=== PATIENT | female | born 1950 | race African-American/Black ===

== ENCOUNTER 2017-11-28 17:06 | Inpatient (IN) | payer MEDICARE, MEDICAID ==
[~2017-11-28] VITALS: Ht 167.6 cm; Wt 88.0 kg
[2017-11-28] MEDS ORDERED: MAGN400O6 PO (17:40)
[2017-11-28] MEDS ORDERED: ASPI81TA31 PO (17:40)
[2017-11-28] MEDS ORDERED: LEVO125T8 PO (17:40)
[2017-11-28] MEDS ORDERED: AMLO10TA2 PO (17:40)
[2017-11-28] MEDS ORDERED: TIMO5SOL11 OP (17:40)
[2017-11-28] MEDS ORDERED: ALBU6.7H IH (17:40)
[2017-11-28] MEDS ORDERED: ERGO500014 PO (17:40)
[2017-11-28] MEDS ORDERED: DIVA500T4 PO (17:40)
[2017-11-28] MEDS ORDERED: ATOR80TA PO (17:40)
[2017-11-28] MEDS ORDERED: DIPH50CA4 PO (17:40)
[2017-11-28] MEDS ORDERED: ACET-73 PO (17:40)
[2017-11-28] MEDS ORDERED: PHEN100C4 PO (17:40)
[2017-11-28] MEDS ORDERED: LATA2.5D7 OP (17:40)
[2017-11-28] MEDS ORDERED: CLON1TAB4 PO (17:40)
--- NOTE | 2017-11-28 18:12 | NUR ---
Dr. Corey at bedside for MSE.
[2017-11-28] MEDS ORDERED: IV NORMAL SALINE 1000 ML BAG IV ONE (18:15)
[2017-11-28 18:42] LABS: BASOPHILS # (AUTO) 0.1 K/uL (0.0-8.0); BASOPHILS % (AUTO) 1.2 % (0.0-2.0); EOSINOPHILS # (AUTO) 0.1 K/uL (0.0-0.7); HEMATOCRIT 37.1 % (31.2-41.9); LYMPHOCYTES # (AUTO) 4.3 K/uL (20.0-40.0); LYMPHOCYTES % (AUTO) 35.3 % (20.5-51.5); MEAN CORPUSCULAR HEMOGLOBIN 30.1 uug (24.7-32.8); MEAN CORPUSCULAR HGB CONC 32 g/dL (32.3-35.6); MEAN CORPUSCULAR VOLUME 93.3 fL (75.5-95.3); MONOCYTES # (AUTO) 1.5 K/uL (2.0-10.0); MONOCYTES % (AUTO) 12.2 % (0.0-11.0); NEUTROPHILS # (AUTO) 6.1 K/uL (1.8-8.9); NEUTROPHILS % (AUTO) 50.3 % (38.5-71.5); RED BLOOD CELL COUNT(AUTO) 3.98 MIL/uL (3.63-4.92); WHITE BLOOD COUNT (AUTO) 12.1 K/uL (3.8-11.8)
[2017-11-28 18:45] LABS: CREATININE 0.8 mg/dL (0.6-1.3); POTASSIUM 4.4 mmol/L (3.5-5.1)
[2017-11-28] MEDS ORDERED: OLANZAPINE 5 MG TABLET PO ONE (18:45)
[2017-11-28] MEDS ORDERED: OLANZAPINE 5 MG TABLET ONE (18:55)
[2017-11-28] MEDS ORDERED: IOHEXOL 300MG/ML 100 ML INFUS..BTL ONE (19:21)
[2017-11-28] MEDS ORDERED: NORMAL SALINE FLUSH 10 ML DISP.SYRIN ONE (19:21)
[2017-11-28] MEDS ORDERED: IV NORMAL SALINE 250 ML IV ONE (19:21)
[2017-11-28 19:57] LABS: PLATELET COUNT (AUTO) 295 K/uL (179-408)
--- NOTE | 2017-11-28 20:30 | NUR ---
Medically cleared by ERMD
--- NOTE | 2017-11-28 20:46 | NUR ---
Pt. admitted to [facility], under care of Dr. Wolff Belongs List completed
[2017-11-28 21:00] VITALS: BP 124/88
[2017-11-28] MEDS ORDERED: MAG HYDROX/AL HYDROX/SIMETH 30 ML LIQUID UDC PO PRN (21:00)
[2017-11-28] MEDS ORDERED: ACETAMINOPHEN 325 MG TABLET PO PRN (21:00)
[2017-11-28] MEDS ORDERED: MAGNESIUM HYDROXIDE 30 ML LIQUID UDC PO PRN (21:00)
--- NOTE | 2017-11-28 22:00 | NUR ---
received to care, at 2044, on a 72 hour hold, for danger to self, from the emergency room, a transfer from [facility]. according to the chart, she lives with her daughter who stated that she was voicing suicidal ideations to her, stating that she was scared after "seeing ugly people who want to take her life" ppppppppt denies any ideations at this time, stating that "it comes and goes", but she verbally contracted for safety, while on the unit. according to the chart, her daughter reported that patient has a history of multiple suicide attempts in the past, including attempting to stab herself in the abdomen 3 years ago, and an overdose on another occasion. upon arrival, she was cooperative, but suspicious, guarded, and easilly agitated during interview. as of 2199, she is awake, in bed. no distress noted.
[2017-11-28] MEDS ORDERED: diphenhydrAMINE 50 MG CAPSULE PO PRN (22:15)
[2017-11-28] MEDS ORDERED: ALBUTEROL SULFATE 2.5 MG/3 ML NEBU NEB PRN (22:15)
[2017-11-28] MEDS: TEMAZEPAM 7.5 MG CAPSULE PO PRN (22:34)
--- NOTE | 2017-11-28 22:34 | NUR ---
remains awake. PRN restoril was given at this time.
--- NOTE | 2017-11-28 23:00 | NUR ---
appears to be asleep. no distress noted.
[2017-11-29 01:46] LABS: *BILIRUBIN,URIN NEGATIVE (NEGATIVE); *BLOOD, URINE NEGATIVE (NEGATIVE); *CLARITY,URINE CLEAR (CLEAR); *COLOR,URINE YELLOW (YELLOW); *KETONES,URINE NEGATIVE (NEGATIVE); *PROTEIN,URINE NEGATIVE (NEGATIVE); *UROBILINOGEN,URINE 0.2 E.U./dl (NORMAL); LEUKOCYTE ESTERASE ,URINE NEGATIVE (NEGATIVE); NITRITE, URINE NEGATIVE (NEGATIVE); PH,URINE 7.5 (5.0-8.0); UGLUCOSE NEGATIVE (NEGATIVE)
[2017-11-29 01:50] LABS: BACTERIA,URINE NONE SEEN /HPF (NONE SEEN); RBC,URINE NONE SEEN /HPF (0-3); SQUAMOUS EPITHELIAL CELL,UR NONE SEEN /HPF (NONE SEEN); WBC,URINE 0-3 /HPF (0-3)
[2017-11-29 02:14] LABS: *AMPHETAMINE, URINE NEGATIVE (NEGATIVE); *BARBITURATE, URINE NEGATIVE (NEGATIVE); *CANNABINOID, URINE NEGATIVE (NEGATIVE); *COCCAINE, URINE NEGATIVE (NEGATIVE); *OPIATE, URINE NEGATIVE (NEGATIVE); *PHENCYCLIDINE SCREEN,URINE NEGATIVE (NEGATIVE)
[2017-11-29 07:30] VITALS: BP 120/80
[2017-11-29] MEDS: LEVOTHYROXINE SODIUM 125 MCG TABLET PO SCH (08:54)
[2017-11-29] MEDS: ASPIRIN 81 MG TAB.CHEW PO SCH (08:54)
[2017-11-29] MEDS: AMLODIPINE 10 MG TABLET PO SCH (08:54)
[2017-11-29] MEDS: LORAZEPAM 0.5 MG TABLET PO PRN (13:46)
[2017-11-29 15:16] VITALS: BP 129/82
[2017-11-29] MEDS: NICOTINE 14 MG/24HR PATCH TD SCH (17:07)
[2017-11-29] MEDS: PHENYTOIN SODIUM EXTENDED 100 MG CAPSULE.SA PO SCH (20:28)
[2017-11-29] MEDS: TIMOLOL MALEATE XE 0.5% OPHT 5 ML BOTTLE OP SCH (20:34)
[2017-11-29] MEDS: LATANOPROST OPHT DROP 2.5 ML BOTTLE OP SCH (20:34)
[2017-11-29] MEDS ORDERED: QUETIAPINE FUMARATE 25 MG TABLET PO SCH (21:00)
[2017-11-29] MEDS ORDERED: ATORVASTATIN 40 MG TABLET PO SCH (21:00)
[2017-11-29 21:20] VITALS: BP 142/83
--- NOTE | 2017-11-29 22:00 | NUR ---
received to care, up in wheel chair, isolative, but pleasant upon approach. compliant with medications and staff direction. as of 2199, she remains awake, in bed. no distress noted. will continue to monitor closely.
[2017-11-29] MEDS: TEMAZEPAM 7.5 MG CAPSULE PO PRN (22:20)
--- NOTE | 2017-11-29 22:20 | NUR ---
remains awake. PRN restoril was given. will continue to monitor closely.
--- NOTE | 2017-11-29 23:00 | NUR ---
appears to be asleep. no distress noted.
[2017-11-30] MEDS: NICOTINE 14 MG/24HR PATCH TD SCH (08:08)
[2017-11-30] MEDS: AMLODIPINE 10 MG TABLET PO SCH (08:08)
[2017-11-30] MEDS: LEVOTHYROXINE SODIUM 125 MCG TABLET PO SCH (08:08)
[2017-11-30] MEDS: ASPIRIN 81 MG TAB.CHEW PO SCH (08:08)
[2017-11-30 08:16] LABS: BASOPHILS % (AUTO) 0.2 % (0.0-2.0); EOSINOPHILS # (AUTO) 0.1 K/uL (0.0-0.7); EOSINOPHILS % (AUTO) 1.3 % (0.0-7.0); HEMATOCRIT 35.9 % (31.2-41.9); HEMOGLOBIN 11.8 g/dL (10.9-14.3); LYMPHOCYTES # (AUTO) 3.1 K/uL (20.0-40.0); LYMPHOCYTES % (AUTO) 31.8 % (20.5-51.5); MEAN CORPUSCULAR HEMOGLOBIN 30.7 uug (24.7-32.8); MEAN CORPUSCULAR HGB CONC 33 g/dL (32.3-35.6); MEAN CORPUSCULAR VOLUME 93.1 fL (75.5-95.3); MONOCYTES # (AUTO) 1.2 K/uL (2.0-10.0); MONOCYTES % (AUTO) 11.8 % (0.0-11.0); NEUTROPHILS # (AUTO) 5.4 K/uL (1.8-8.9); NEUTROPHILS % (AUTO) 54.9 % (38.5-71.5); PLATELET COUNT (AUTO) 252 K/uL (179-408); RED BLOOD CELL COUNT(AUTO) 3.85 MIL/uL (3.63-4.92); WHITE BLOOD COUNT (AUTO) 9.8 K/uL (3.8-11.8)
[2017-11-30 08:22] VITALS: BP 134/88
[2017-11-30 08:33] LABS: THYROID STIMULATING HORMONE 0.471 mIU/mL (0.358-3.740)
[2017-11-30 08:37] LABS: BILIRUBIN,TOTAL 0.3 mg/dL (0.2-1.0); CREATININE 0.7 mg/dL (0.6-1.3); MAGNESIUM 1.9 mg/dL (1.8-2.4); PHOSPHOROUS 3.8 mg/dL (2.5-4.9); POTASSIUM 3.6 mmol/L (3.5-5.1); TOTAL PROTEIN, SERUM 6.3 g/dL (6.4-8.2)
[2017-11-30] MEDS ORDERED: DIVALPROEX ER 500 MG TAB.SR.24H PO SCH (09:00)
--- NOTE | 2017-11-30 10:31 | NUR ---
Firearms Report: Dog Track Kennel Manager completed and submitted [facility] Firearms Report on 11/30/17.
[2017-11-30 15:12] VITALS: BP 126/77
[2017-11-30] MEDS: LORAZEPAM 0.5 MG TABLET PO PRN ×2 (16:03→21:48)
[2017-11-30 20:20] VITALS: BP 137/97
[2017-11-30] MEDS: LATANOPROST OPHT DROP 2.5 ML BOTTLE OP SCH (20:23)
[2017-11-30] MEDS: QUETIAPINE FUMARATE 25 MG TABLET PO SCH (20:23)
[2017-11-30] MEDS: TIMOLOL MALEATE XE 0.5% OPHT 5 ML BOTTLE OP SCH (20:23)
[2017-11-30] MEDS: ATORVASTATIN 20 MG TABLET PO SCH (20:24)
[2017-11-30] MEDS: DIVALPROEX ER 500 MG TAB.SR.24H PO SCH (20:25)
[2017-11-30] MEDS: PHENYTOIN SODIUM EXTENDED 100 MG CAPSULE.SA PO SCH (20:25)
[2017-11-30] MEDS: TEMAZEPAM 7.5 MG CAPSULE PO PRN (21:57)
[2017-12-01 07:30] VITALS: BP 125/75
[2017-12-01] MEDS: LEVOTHYROXINE SODIUM 125 MCG TABLET PO SCH (08:38)
[2017-12-01] MEDS: DIVALPROEX ER 500 MG TAB.SR.24H PO SCH ×2 (08:39→21:23)
[2017-12-01] MEDS: ASPIRIN 81 MG TAB.CHEW PO SCH (08:40)
[2017-12-01] MEDS: AMLODIPINE 10 MG TABLET PO SCH (08:40)
[2017-12-01] MEDS: NICOTINE 14 MG/24HR PATCH TD SCH (09:31)
[2017-12-01] MEDS: LORAZEPAM 0.5 MG TABLET PO PRN ×3 (12:19→23:22)
[2017-12-01 15:20] VITALS: BP 126/89
[2017-12-01] MEDS: GUAIFENESIN/CODEINE 5 ML LIQUID UDC PO PRN ×2 (15:58→23:57)
[2017-12-01 20:00] VITALS: BP 139/90
[2017-12-01] MEDS: ATORVASTATIN 20 MG TABLET PO SCH (21:23)
[2017-12-01] MEDS: PHENYTOIN SODIUM EXTENDED 100 MG CAPSULE.SA PO SCH (21:23)
[2017-12-01] MEDS: QUETIAPINE FUMARATE 25 MG TABLET PO SCH (21:23)
[2017-12-01] MEDS: TIMOLOL MALEATE XE 0.5% OPHT 5 ML BOTTLE OP SCH (21:24)
[2017-12-01] MEDS: LATANOPROST OPHT DROP 2.5 ML BOTTLE OP SCH (21:24)
[2017-12-02 07:30] VITALS: BP 102/81
[2017-12-02 08:01] LABS: BILIRUBIN,TOTAL 0.5 mg/dL (0.2-1.0); CREATININE 0.7 mg/dL (0.6-1.3); POTASSIUM 4.3 mmol/L (3.5-5.1); TOTAL PROTEIN, SERUM 6.2 g/dL (6.4-8.2)
[2017-12-02 08:02] LABS: BASOPHILS % (AUTO) 0.4 % (0.0-2.0); EOSINOPHILS # (AUTO) 0.2 K/uL (0.0-0.7); EOSINOPHILS % (AUTO) 1.8 % (0.0-7.0); HEMATOCRIT 36.7 % (31.2-41.9); HEMOGLOBIN 11.9 g/dL (10.9-14.3); LYMPHOCYTES % (AUTO) 29.5 % (20.5-51.5); MEAN CORPUSCULAR HGB CONC 32 g/dL (32.3-35.6); MEAN CORPUSCULAR VOLUME 92.9 fL (75.5-95.3); MONOCYTES # (AUTO) 1.2 K/uL (2.0-10.0); MONOCYTES % (AUTO) 11.5 % (0.0-11.0); NEUTROPHILS # (AUTO) 5.9 K/uL (1.8-8.9); NEUTROPHILS % (AUTO) 56.8 % (38.5-71.5); PLATELET COUNT (AUTO) 218 K/uL (179-408); RED BLOOD CELL COUNT(AUTO) 3.96 MIL/uL (3.63-4.92); WHITE BLOOD COUNT (AUTO) 10.3 K/uL (3.8-11.8)
[2017-12-02] MEDS: NICOTINE 14 MG/24HR PATCH TD SCH (08:52)
[2017-12-02] MEDS: DIVALPROEX ER 500 MG TAB.SR.24H PO SCH ×2 (08:53→20:35)
[2017-12-02] MEDS: ASPIRIN 81 MG TAB.CHEW PO SCH (08:53)
[2017-12-02] MEDS: AMLODIPINE 10 MG TABLET PO SCH ×2 (08:53→15:59)
[2017-12-02] MEDS: LEVOTHYROXINE SODIUM 125 MCG TABLET PO SCH (08:53)
[2017-12-02] MEDS: LORAZEPAM 0.5 MG TABLET PO PRN (14:07)
[2017-12-02 16:26] VITALS: BP 152/107
[2017-12-02 20:28] VITALS: BP 149/96
[2017-12-02] MEDS: TIMOLOL MALEATE XE 0.5% OPHT 5 ML BOTTLE OP SCH (20:35)
[2017-12-02] MEDS: PHENYTOIN SODIUM EXTENDED 100 MG CAPSULE.SA PO SCH (20:35)
[2017-12-02] MEDS: LATANOPROST OPHT DROP 2.5 ML BOTTLE OP SCH (20:35)
[2017-12-02] MEDS: QUETIAPINE FUMARATE 25 MG TABLET PO SCH (20:36)
[2017-12-02] MEDS: ATORVASTATIN 20 MG TABLET PO SCH (20:36)
[2017-12-02] MEDS: GUAIFENESIN/CODEINE 5 ML LIQUID UDC PO PRN (21:25)
[2017-12-02] MEDS: TEMAZEPAM 7.5 MG CAPSULE PO PRN (21:26)
[2017-12-03] MEDS: LORAZEPAM 0.5 MG TABLET PO PRN ×2 (03:34→10:33)
[2017-12-03] MEDS: LEVOTHYROXINE SODIUM 125 MCG TABLET PO SCH (06:38)
[2017-12-03 07:30] VITALS: BP 111/68
[2017-12-03] MEDS ORDERED: LEVOTHYROXINE SODIUM 125 MCG TABLET PO SCH (08:00)
[2017-12-03] MEDS: NICOTINE 14 MG/24HR PATCH TD SCH (09:07)
[2017-12-03] MEDS: DIVALPROEX ER 500 MG TAB.SR.24H PO SCH (09:07)
[2017-12-03] MEDS: AMLODIPINE 10 MG TABLET PO SCH (09:07)
[2017-12-03] MEDS: ASPIRIN 81 MG TAB.CHEW PO SCH (09:08)
--- NOTE | 2017-12-03 13:04 | NUR ---
DC Note: Patient will be discharged to Home with her daughter [[address], [address] [facility] [address]] via private transportation at 3 pm. Spoke with patient's daughter, Amanda ([phone]) who is willing to provide transportation and is aware and agreeable with discharge plans. Patient is aware and agreeable with discharge plans. Patient will follow-up with her Primary Care Physician at [facility] [[address] [place], [place] [address]; [phone]] and her Psychiatrist Dr. Velarde through [facility] [[address] [place] [address]; [phone]]. Patient was provided with a brief substance abuse intervention and referred to [facility] , [facility] , and [facility] . Patient will continue going to her [place] meetings on Sundays from 8:30-10pm.
[2017-12-03 15:00] VITALS: BP 125/72
--- NOTE | 2017-12-03 15:30 | NUR ---
PT LEFT UNIT ACCOMPANIED BY DAUGHTER AND CLIENT PROJECT COORDINATOR TO PRIVATE VEHICLE. DENIES PAIN OR DISCOMFORT. ABLE TO MAKE NEEDS KNOWN. PT DENIES SUICIDAL AND HOMICIDAL IDEATIONS. CALM AND COOPERATIVE. DENIES HALLUCINATION, NO DELUSIONS PRESENT. V/S STABLE. LEFT WITH ALL NOTED BELONGINGS AND PAPERWORK. IN NO ACUTE DISTRESS.
[2017-12-04] MEDS ORDERED: LEVOTHYROXINE SODIUM 125 MCG TABLET PO SCH (07:00)
== END 2017-12-03 15:30 | disposition home or self-care (01) | DRG 885 ==
LOC: ER 17:06 → GPS 20:38
PROVIDERS: ADMIT Psychiatry & Neurology Psychosomatic Medicine; ATTEND Internal Medicine
DX: F25.0 Schizoaffective disorder, bipolar type (principal); F01.50 Vascular dementia, unspecified severity, without behavioral disturbance, psychotic disturbance, mood disturbance, and anxiety; E44.0 Moderate protein-calorie malnutrition; G62.9 Polyneuropathy, unspecified; I08.1 Rheumatic disorders of both mitral and tricuspid valves; J44.9 Chronic obstructive pulmonary disease, unspecified; E03.9 Hypothyroidism, unspecified; K80.20 Calculus of gallbladder without cholecystitis without obstruction; Z91.5 Personal history of self-harm; F17.210 Nicotine dependence, cigarettes, uncomplicated; E66.9 Obesity, unspecified; Z68.31 Body mass index [BMI] 31.0-31.9, adult; Z71.3 Dietary counseling and surveillance; F14.10 Cocaine abuse, uncomplicated; H54.61 Unqualified visual loss, right eye, normal vision left eye; I77.810 Thoracic aortic ectasia; F41.9 Anxiety disorder, unspecified; Z87.820 Personal history of traumatic brain injury; Z79.82 Long term (current) use of aspirin; Z79.899 Other long term (current) drug therapy; F43.10 Post-traumatic stress disorder, unspecified; X58.XXXS Exposure to other specified factors, sequela; Z91.410 Personal history of adult physical and sexual abuse; I10 Essential (primary) hypertension; G89.29 Other chronic pain
CPT/HCPCS: 36415; 70450; 71045; 71260; 80164; 80307; 83735; 84100; 84443; 85025; 87077; 87086; 93005; 93307; A4663; J3490; J3590; J7030; J7050; Q9967

== ENCOUNTER 2025-02-12 14:10 | Inpatient (IN) | payer MEDICARE, OTHER ==
[~2025-02-12] VITALS: Ht 162.6 cm; Wt 77.6 kg
[~2025-02-12 14:10] MED LIST: ACET-73 PO; ALBU6.7H9 IH; AMLO10TA59 PO; ASPI81TA31 PO; ATOR80TA PO; CLON1TAB12 PO; DIPH50CA4 PO; DIVA500T4 PO; ERGO500014 PO; LATA2.5D15 EACHEYE; LEVO125T8 PO; MAGN400O6 PO; PHEN100C4 PO; TIMO5SOL11 OP
[2025-02-12] MEDS: diphenhydrAMINE 50 MG/1 ML VIAL IM ONE (15:30)
[2025-02-12] MEDS: LORAZEPAM 2 MG/1 ML VIAL IM ONE (15:30)
[2025-02-12] MEDS: HALOPERIDOL LACTATE 5 MG/1 ML VIAL IM ONE (15:30)
[2025-02-12] MEDS ORDERED: LORAZEPAM 2 MG/1 ML VIAL ONE (15:32)
[2025-02-12] MEDS ORDERED: HALOPERIDOL LACTATE 5 MG/1 ML VIAL ONE (15:32)
[2025-02-12] MEDS ORDERED: diphenhydrAMINE 50 MG/1 ML VIAL ONE (15:32)
[2025-02-12 15:43] LABS: BASOPHILS % (AUTO) 0.3 % (0.0-2.0); EOSINOPHILS % (AUTO) 0.3 % (0.0-7.0); HEMATOCRIT 41.4 % (31.2-41.9); HEMOGLOBIN 12.9 g/dL (10.9-14.3); LYMPHOCYTES # (AUTO) 1.9 K/uL (0.8-4.8); LYMPHOCYTES % (AUTO) 15.5 % (20.5-51.5); MEAN CORPUSCULAR HEMOGLOBIN 28.3 uug (24.7-32.8); MEAN CORPUSCULAR HGB CONC 31 g/dL (32.3-35.6); MEAN CORPUSCULAR VOLUME 91.3 fL (75.5-95.3); MONOCYTES # (AUTO) 0.8 K/uL (0.1-1.30); MONOCYTES % (AUTO) 6.7 % (0.0-11.0); NEUTROPHILS # (AUTO) 9.4 K/uL (1.8-8.9); NEUTROPHILS % (AUTO) 77.2 % (38.5-71.5); PLATELET COUNT (AUTO) 256 K/uL (179-408); RED BLOOD CELL COUNT(AUTO) 4.54 MIL/uL (3.63-4.92); RED CELL DISTRIBUTION WIDTH 15.5 % (12.3-17.7); WHITE BLOOD COUNT (AUTO) 12.2 K/uL (3.8-11.8)
[2025-02-12 15:48] LABS: DIFFERENTIAL COMMENT 1
[2025-02-12 15:51] LABS: *BILIRUBIN,URIN NEGATIVE (NEGATIVE); *BLOOD, URINE 1+ (NEGATIVE); *CLARITY,URINE SLIGHTLY CLOUDY (CLEAR); *COLOR,URINE DARK YELLOW (YELLOW); *KETONES,URINE TRACE (NEGATIVE); *PROTEIN,URINE TRACE (NEGATIVE); LEUKOCYTE ESTERASE ,URINE 1+ (NEGATIVE); NITRITE, URINE NEGATIVE (NEGATIVE); UGLUCOSE NEGATIVE (NEGATIVE)
[2025-02-12 15:51] LABS: CALCIUM 8.7 mg/dL (8.5-10.1); CARBON DIOXIDE 25 mmol/L (21-32); CHLORIDE 108 mmol/L (98-107); CREATININE 0.7 mg/dL (0.6-1.3); GLUCOSE 124 mg/dL (74-106); LIPASE 71 U/L (16-77); POTASSIUM 3.4 mmol/L (3.5-5.1); SODIUM SERUM 146 mmol/L (136-145); UREA NITROGEN, BLOOD 13 mg/dL (7-18)
[2025-02-12 15:57] LABS: ALANINE AMINOTRANSFERASE 39 U/L (14-59); ALBUMIN 2.9 g/dL (3.4-5.0); ALKALINE PHOSPHATASE 89 U/L (50-136); ASPARTATE AMINOTRANSFERASE 52 U/L (15-37); BILIRUBIN,DIRECT 0.6 mg/dL (0.0-0.2); BILIRUBIN,TOTAL 0.7 mg/dL (0.2-1.0); TOTAL PROTEIN, SERUM 6.9 g/dL (6.4-8.2)
[2025-02-12 16:02] LABS: LACTIC ACID 2.8 mmol/L (0.4-2.0)
[2025-02-12 16:20] LABS: BACTERIA,URINE FEW /HPF (NONE SEEN); SQUAMOUS EPITHELIAL CELL,UR MANY /HPF (NONE SEEN)
[2025-02-12 16:21] LABS: URINE AMORPHOUS URATE MODERATE /HPF
[2025-02-12] MEDS: IV NORMAL SALINE 1000 ML BAG IV ONE (16:30)
[2025-02-12] MEDS: CEFTRIAXONE 1 G in IV DEXTROSE 5% 50 ML IV ONE (16:30)
[2025-02-12] MEDS: METRONIDAZOLE 500 MG/NS 100ML 100 ML IV ONE (16:30)
[2025-02-12] MEDS ORDERED: BACL10TA PO (16:43)
[2025-02-12] MEDS ORDERED: TEMA15CA PO (16:43)
[2025-02-12] MEDS ORDERED: FAMO10TA41 PO (16:43)
[2025-02-12] MEDS ORDERED: TRAM100C3 PO (16:43)
[2025-02-12] MEDS ORDERED: DOCU-160 PO (16:43)
[2025-02-12] MEDS ORDERED: FAMO40TA7 PO (16:43)
[2025-02-12] MEDS ORDERED: IPRA4AER IH (16:43)
[2025-02-12] MEDS ORDERED: ASCO500C18 PO (16:43)
[2025-02-12] MEDS ORDERED: METRONIDAZOLE 500 MG/NS 100ML 100 ML IV ONE (17:46)
[2025-02-12] MEDS ORDERED: CEFTRIAXONE /D5W 50ML IVPB **ER PYXIS IV ONE (17:46)
[2025-02-12] MEDS ORDERED: OLANZAPINE 10 MG VIAL IM PRN (21:00)
[2025-02-12] MEDS ORDERED: MAGNESIUM HYDROXIDE 30 ML LIQUID UDC PO PRN (21:00)
[2025-02-12] MEDS: LATANOPROST OPHT DROP 2.5 ML BOTTLE OP SCH (21:00)
[2025-02-12] MEDS: TIMOLOL MALEATE XE 0.5% OPHT 5 ML BOTTLE OP SCH (21:00)
[2025-02-12] MEDS ORDERED: ERGOCALCIFEROL 50,000 UNIT CAPSULE PO SCH (21:00)
[2025-02-12 22:16] VITALS: BP 145/88; TEMP 98.2; O2SAT 99
[2025-02-12] MEDS: ATORVASTATIN 40 MG TABLET PO SCH (22:46)
[2025-02-12] MEDS: TEMAZEPAM 15 MG CAPSULE PO SCH (22:46)
[2025-02-12] MEDS: BACLOFEN 10 MG TABLET PO SCH (22:47)
[2025-02-12] MEDS: ENOXAPARIN SODIUM 40 MG/0.4 ML DISP.SYRIN SQ SCH (22:50)
[2025-02-12] MEDS: ACETAMINOPHEN 325 MG TABLET PO PRN (22:56)
[2025-02-12 23:22] VITALS: BP 144/87; TEMP 97.8; O2SAT 96
[2025-02-13 05:24] VITALS: BP 146/83; TEMP 97.6; O2SAT 100
[2025-02-13] MEDS: PANTOPRAZOLE SODIUM 40 MG TABLET.DR PO SCH (06:31)
[2025-02-13 06:54] LABS: BASOPHILS % (AUTO) 0.3 % (0.0-2.0); EOSINOPHILS # (AUTO) 0.1 K/uL (0.0-0.7); EOSINOPHILS % (AUTO) 0.7 % (0.0-7.0); HEMOGLOBIN 12.6 g/dL (10.9-14.3); LYMPHOCYTES # (AUTO) 3.4 K/uL (0.8-4.8); LYMPHOCYTES % (AUTO) 28.7 % (20.5-51.5); MEAN CORPUSCULAR HGB CONC 32 g/dL (32.3-35.6); MEAN CORPUSCULAR VOLUME 91.7 fL (75.5-95.3); MONOCYTES # (AUTO) 1.1 K/uL (0.1-1.30); MONOCYTES % (AUTO) 9.8 % (0.0-11.0); NEUTROPHILS # (AUTO) 7.1 K/uL (1.8-8.9); NEUTROPHILS % (AUTO) 60.5 % (38.5-71.5); PLATELET COUNT (AUTO) 231 K/uL (179-408); RED BLOOD CELL COUNT(AUTO) 4.36 MIL/uL (3.63-4.92); RED CELL DISTRIBUTION WIDTH 15.6 % (12.3-17.7); WHITE BLOOD COUNT (AUTO) 11.7 K/uL (3.8-11.8)
[2025-02-13 07:13] LABS: DIFFERENTIAL COMMENT 1
[2025-02-13 07:21] LABS: ALANINE AMINOTRANSFERASE 38 U/L (14-59); ALBUMIN 2.9 g/dL (3.4-5.0); ALKALINE PHOSPHATASE 88 U/L (50-136); ASPARTATE AMINOTRANSFERASE 64 U/L (15-37); BILIRUBIN,TOTAL 0.8 mg/dL (0.2-1.0); CALCIUM 8.5 mg/dL (8.5-10.1); CARBON DIOXIDE 28 mmol/L (21-32); CHLORIDE 106 mmol/L (98-107); CREATININE 0.6 mg/dL (0.6-1.3); GLUCOSE 84 mg/dL (74-106); MAGNESIUM 1.8 mg/dL (1.8-2.4); PHOSPHOROUS 2.4 mg/dL (2.5-4.9); SODIUM SERUM 142 mmol/L (136-145); TOTAL PROTEIN, SERUM 6.8 g/dL (6.4-8.2); UREA NITROGEN, BLOOD 8 mg/dL (7-18); VALPROIC ACID 42 ug/mL (50-100)
[2025-02-13 07:47] VITALS: BP 155/85; TEMP 98.4; O2SAT 99
[2025-02-13 07:50] LABS: CHOLESTEROL 95 mg/dL (<200); HDL CHOLESTEROL 72 mg/dL (40-60); TRIGLYCERIDES 44 MG/DL (30-150)
[2025-02-13] MEDS ORDERED: DIVALPROEX ER 250 MG TAB.SR.24H PO SCH ×2 (09:00)
[2025-02-13] MEDS ORDERED: LEVOTHYROXINE SODIUM 125 MCG TABLET PO SCH (09:00)
[2025-02-13 09:40] LABS: THYROID STIMULATING HORMONE 3.597 mIU/mL (0.358-3.740)
[2025-02-13] MEDS ORDERED: DIVA250T4 PO (10:28)
[2025-02-13] MEDS ORDERED: CHOL400T PO (10:30)
[2025-02-13] MEDS ORDERED: FOLI1TAB94 PO (10:33)
[2025-02-13] MEDS ORDERED: MIRT-94 PO (10:33)
[2025-02-13 11:08] VITALS: BP 147/79; TEMP 98.2; O2SAT 100
[2025-02-13] MEDS: LEVOTHYROXINE SODIUM 88 MCG TABLET PO SCH (11:24)
[2025-02-13] MEDS: CHOLECALCIFEROL 400 UNITS TABLET PO SCH (11:25)
[2025-02-13] MEDS: DIVALPROEX 250 MG TABLET.DR PO SCH (11:25)
[2025-02-13] MEDS: DOCUSATE SODIUM 100 MG CAPSULE PO SCH (11:25)
[2025-02-13] MEDS: ASCORBIC ACID 500 MG TABLET PO SCH (11:26)
[2025-02-13] MEDS: CEFTRIAXONE 1 G in IV DEXTROSE 5% 50 ML IV SCH (11:29)
[2025-02-13] MEDS: POTASSIUM CHLORIDE 20 MEQ TAB.PRT.SR PO ONE ×2 (13:42→17:24)
[2025-02-13 15:37] VITALS: BP 147/81; TEMP 98.2; O2SAT 98
[2025-02-13] MEDS: NEUTRA PHOS PACKET PO ONE (17:24)
[2025-02-13] MEDS: MIRTAZAPINE 15 MG TABLET PO SCH (20:54)
[2025-02-13] MEDS ORDERED: TIMOLOL MALEATE XE 0.5% OPHT 5 ML BOTTLE OP SCH (21:00)
[2025-02-13] MEDS: LATANOPROST OPHT DROP 2.5 ML BOTTLE EACHEYE SCH (21:38)
[2025-02-13 23:04] VITALS: BP 130/77; TEMP 98.5; O2SAT 99
[2025-02-14 06:40] VITALS: BP 135/68; TEMP 98.5; O2SAT 98
[2025-02-14 07:35] LABS: BASOPHILS % (AUTO) 0.3 % (0.0-2.0); EOSINOPHILS # (AUTO) 0.1 K/uL (0.0-0.7); EOSINOPHILS % (AUTO) 1.2 % (0.0-7.0); HEMATOCRIT 36.9 % (31.2-41.9); HEMOGLOBIN 11.8 g/dL (10.9-14.3); LYMPHOCYTES % (AUTO) 31.9 % (20.5-51.5); MEAN CORPUSCULAR HEMOGLOBIN 29.7 uug (24.7-32.8); MEAN CORPUSCULAR HGB CONC 32 g/dL (32.3-35.6); MONOCYTES # (AUTO) 1.3 K/uL (0.1-1.30); MONOCYTES % (AUTO) 10.5 % (0.0-11.0); NEUTROPHILS # (AUTO) 7.1 K/uL (1.8-8.9); NEUTROPHILS % (AUTO) 56.1 % (38.5-71.5); PLATELET COUNT (AUTO) 213 K/uL (179-408); RED BLOOD CELL COUNT(AUTO) 3.97 MIL/uL (3.63-4.92); RED CELL DISTRIBUTION WIDTH 15.4 % (12.3-17.7); WHITE BLOOD COUNT (AUTO) 12.6 K/uL (3.8-11.8)
[2025-02-14 07:46] LABS: DIFFERENTIAL COMMENT 1
[2025-02-14 07:49] LABS: CALCIUM 8.8 mg/dL (8.5-10.1); CARBON DIOXIDE 27 mmol/L (21-32); CHLORIDE 110 mmol/L (98-107); CREATININE 0.6 mg/dL (0.6-1.3); GLUCOSE 70 mg/dL (74-106); POTASSIUM 4.8 mmol/L (3.5-5.1); SODIUM SERUM 143 mmol/L (136-145); UREA NITROGEN, BLOOD 8 mg/dL (7-18)
[2025-02-14 07:50] LABS: ALBUMIN 2.6 g/dL (3.4-5.0); BILIRUBIN,DIRECT 0.5 mg/dL (0.0-0.2); BILIRUBIN,TOTAL 0.7 mg/dL (0.2-1.0); PHOSPHOROUS 3.9 mg/dL (2.5-4.9); TOTAL PROTEIN, SERUM 6.5 g/dL (6.4-8.2)
[2025-02-14] MEDS: FOLIC ACID 1 MG TABLET PO SCH (08:53)
[2025-02-14 10:29] VITALS: BP 141/83; TEMP 96.2; O2SAT 99
[2025-02-14] MEDS: LORAZEPAM 2 MG/1 ML VIAL IV PRN (14:06)
[2025-02-14 15:38] VITALS: BP_SYST 118; BP_SYST 152; BP_DIAS 77; BP_DIAS 89; TEMP 97.5; O2SAT 96
[2025-02-14] MEDS: GABAPENTIN 100 MG CAPSULE PO SCH (17:26)
[2025-02-14] MEDS: QUETIAPINE FUMARATE 25 MG TABLET PO SCH (17:26)
[2025-02-14 19:10] VITALS: BP 110/76; TEMP 98.4; O2SAT 98
[2025-02-14] MEDS: MIRTAZAPINE 15 MG TABLET PO SCH (21:20)
[2025-02-15 06:24] VITALS: BP 104/76; TEMP 98; O2SAT 97
[2025-02-15] MEDS: LACTULOSE 20 G/30 ML LIQUID UDC PO SCH (08:24)
[2025-02-15 11:06] VITALS: BP 102/65; TEMP 98.7; O2SAT 100
[2025-02-15 15:21] VITALS: BP 106/63; TEMP 97.4; O2SAT 95
[2025-02-15 19:50] VITALS: BP 132/90; TEMP 98.4
[2025-02-15] MEDS: LORAZEPAM 1 MG TABLET PO PRN (20:09)
[2025-02-15] MEDS: TEMAZEPAM 15 MG CAPSULE PO PRN (22:02)
[2025-02-16] MEDS: QUETIAPINE FUMARATE 25 MG TABLET PO PRN (01:48)
[2025-02-16] MEDS: HYDROCODONE/APAP 5-325MG TABLET PO PRN (01:49)
[2025-02-16 06:11] LABS: BASOPHILS # (AUTO) 0.1 K/UL (0.0-0.2); BASOPHILS % (AUTO) 0.6 % (0.0-2.0); DIFFERENTIAL COMMENT 1; EOSINOPHILS # (AUTO) 0.1 K/uL (0.0-0.7); EOSINOPHILS % (AUTO) 1.1 % (0.0-7.0); HEMOGLOBIN 12.2 g/dL (10.9-14.3); LYMPHOCYTES # (AUTO) 3.2 K/uL (0.8-4.8); LYMPHOCYTES % (AUTO) 33.5 % (20.5-51.5); MEAN CORPUSCULAR HEMOGLOBIN 28.9 uug (24.7-32.8); MEAN CORPUSCULAR HGB CONC 31 g/dL (32.3-35.6); MEAN CORPUSCULAR VOLUME 92.2 fL (75.5-95.3); MONOCYTES # (AUTO) 0.9 K/uL (0.1-1.30); NEUTROPHILS # (AUTO) 5.3 K/uL (1.8-8.9); NEUTROPHILS % (AUTO) 55.8 % (38.5-71.5); PLATELET COUNT (AUTO) 217 K/uL (179-408); RED BLOOD CELL COUNT(AUTO) 4.23 MIL/uL (3.63-4.92); RED CELL DISTRIBUTION WIDTH 15.8 % (12.3-17.7); WHITE BLOOD COUNT (AUTO) 9.6 K/uL (3.8-11.8)
[2025-02-16 08:07] LABS: CALCIUM 8.4 mg/dL (8.5-10.1); CARBON DIOXIDE 26 mmol/L (21-32); CHLORIDE 112 mmol/L (98-107); CREATININE 0.6 mg/dL (0.6-1.3); GLUCOSE 84 mg/dL (74-106); POTASSIUM 4.4 mmol/L (3.5-5.1); SODIUM SERUM 143 mmol/L (136-145); UREA NITROGEN, BLOOD 12 mg/dL (7-18)
[2025-02-16 12:09] VITALS: BP 104/69; TEMP 97.3; O2SAT 99
[2025-02-16] MEDS: LIDOCAINE 5% PATCH TD SCH (12:41)
[2025-02-16 15:59] VITALS: BP 106/63; TEMP 97.8; O2SAT 99
[2025-02-16 19:47] VITALS: BP 115/76; TEMP 98.3; O2SAT 98
[2025-02-17] MEDS: CEphaleXIN 500 MG CAPSULE PO SCH (06:11)
[2025-02-17 09:48] LABS: BASOPHILS # (AUTO) 0.1 K/UL (0.0-0.2); BASOPHILS % (AUTO) 0.6 % (0.0-2.0); EOSINOPHILS # (AUTO) 0.1 K/uL (0.0-0.7); EOSINOPHILS % (AUTO) 1.4 % (0.0-7.0); HEMATOCRIT 38.8 % (31.2-41.9); HEMOGLOBIN 12.4 g/dL (10.9-14.3); LYMPHOCYTES # (AUTO) 2.8 K/uL (0.8-4.8); LYMPHOCYTES % (AUTO) 30.5 % (20.5-51.5); MEAN CORPUSCULAR HGB CONC 32 g/dL (32.3-35.6); MEAN CORPUSCULAR VOLUME 91.2 fL (75.5-95.3); MONOCYTES # (AUTO) 0.8 K/uL (0.1-1.30); MONOCYTES % (AUTO) 8.1 % (0.0-11.0); NEUTROPHILS # (AUTO) 5.5 K/uL (1.8-8.9); NEUTROPHILS % (AUTO) 59.4 % (38.5-71.5); PLATELET COUNT (AUTO) 216 K/uL (179-408); RED BLOOD CELL COUNT(AUTO) 4.26 MIL/uL (3.63-4.92); RED CELL DISTRIBUTION WIDTH 16.3 % (12.3-17.7); WHITE BLOOD COUNT (AUTO) 9.3 K/uL (3.8-11.8)
[2025-02-17 10:02] LABS: DIFFERENTIAL COMMENT 1
[2025-02-17 10:07] LABS: CARBON DIOXIDE 28 mmol/L (21-32); CHLORIDE 110 mmol/L (98-107); CREATININE 0.7 mg/dL (0.6-1.3); GLUCOSE 127 mg/dL (74-106); POTASSIUM 3.9 mmol/L (3.5-5.1); SODIUM SERUM 145 mmol/L (136-145); UREA NITROGEN, BLOOD 12 mg/dL (7-18)
[2025-02-17] MEDS ORDERED: CEPH500C2 PO (10:48)
[2025-02-17] MEDS ORDERED: GABA-532 PO (10:48)
[2025-02-17] MEDS ORDERED: QUET25TA36 PO ×2 (10:48)
[2025-02-17 12:00] VITALS: BP 129/63; TEMP 97.7; O2SAT 100
== END 2025-02-17 15:30 | disposition home health service (06) | DRG 689 ==
LOC: ER 14:10 → TELE IN 18:48 → UNDOADMIN 18:48 → TELE3 21:39 → MEDSURG3 02-13 10:35
PROVIDERS: ADMIT Internal Medicine; ATTEND Nurse Practitioner Acute Care
PROC: 05HD33Z Insertion of Infusion Device into Right Cephalic Vein, Percutaneous Approach (ICD-10-PCS; 2025-02-12)
PROC: 05H933Z Insertion of Infusion Device into Right Brachial Vein, Percutaneous Approach (ICD-10-PCS; principal; 2025-02-13)
DX: N39.0 Urinary tract infection, site not specified (principal); G93.41 Metabolic encephalopathy; E44.0 Moderate protein-calorie malnutrition; E87.20 Acidosis, unspecified; E87.0 Hyperosmolality and hypernatremia; D68.59 Other primary thrombophilia; F25.0 Schizoaffective disorder, bipolar type; B96.89 Other specified bacterial agents as the cause of diseases classified elsewhere; Z74.01 Bed confinement status; E66.9 Obesity, unspecified; Z68.30 Body mass index [BMI] 30.0-30.9, adult; E78.5 Hyperlipidemia, unspecified; I10 Essential (primary) hypertension; G40.909 Epilepsy, unspecified, not intractable, without status epilepticus; J44.9 Chronic obstructive pulmonary disease, unspecified; K74.60 Unspecified cirrhosis of liver; Z91.52 Personal history of nonsuicidal self-harm; Z91.51 Personal history of suicidal behavior; Z87.828 Personal history of other (healed) physical injury and trauma; Z86.19 Personal history of other infectious and parasitic diseases; N28.1 Cyst of kidney, acquired; E87.6 Hypokalemia; E86.1 Hypovolemia; E03.9 Hypothyroidism, unspecified; Z79.890 Hormone replacement therapy; E88.09 Other disorders of plasma-protein metabolism, not elsewhere classified; F03.90 Unspecified dementia, unspecified severity, without behavioral disturbance, psychotic disturbance, mood disturbance, and anxiety
CPT/HCPCS: 36415; 71045; 80164; 83605; 83690; 83735; 84100; 84443; 84484; 85025; 85730; 87040; 87086; A4606; A4663; G0378; J0696; J1200; J1630; J1650; J2060; J3490; J3590; J7040